=== PATIENT | male | born 1985 | race American Indian/Alaskan Native ===

== ENCOUNTER 2016-04-05 11:55 | Emergency (ER) | payer SELFPAY ==
[2016-04-05 12:03] VITALS: BP 137/89
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
== END 2016-04-05 17:00 | disposition left against medical advice (07) ==
LOC: ED 11:55
DX: R51 Headache (principal); Z53.21 Procedure and treatment not carried out due to patient leaving prior to being seen by health care provider